=== PATIENT | female | born 1960 | race Two or more races ===

== ENCOUNTER 2021-03-20 13:51 | Inpatient (IN) | payer OTHER ==
[~2021-03-20] VITALS: Ht 157.5 cm; Wt 45.4 kg
[2021-03-20] MEDS ORDERED: BUSPIRONE HCL10 MG PO (14:06)
== END 2021-03-26 17:10 | disposition home or self-care (01) | DRG 439 ==
LOC: ER 13:51 → SEC-K 03-22 19:21 → MEDI 03-22 19:21
PROVIDERS: ADMIT Internal Medicine; ATTEND Internal Medicine
DX: K85.80 Other acute pancreatitis without necrosis or infection (principal); K86.2 Cyst of pancreas; B20 Human immunodeficiency virus [HIV] disease; F10.20 Alcohol dependence, uncomplicated; Z20.822 Contact with and (suspected) exposure to COVID-19; R10.9 Unspecified abdominal pain